=== PATIENT | male | born 1950 | race Caucasian/White ===

== ENCOUNTER → 2017-02-03 | Day surgery (SDC) | payer BC ==
[~2017-02-03] VITALS: Ht 180.3 cm; Wt 103.0 kg
[~2017-02-03] MED LIST: CIPRO500 MG PO; CPAP INH; LOPRESSOR25 MG PO; MULTIVITAMINS1 EAC2 PO; OMEPRAZOLE40 MG PO; PAXIL20 MG PO; TAMBOCOR100 MG PO; XARELTO20 MG PO
== END | disposition disaster alternative care site (69) ==
LOC: GPOC 01-29 10:00 → GEND 08:56
PROC: 0DBN8ZZ Excision of Sigmoid Colon, Via Natural or Artificial Opening Endoscopic (ICD-10-PCS; principal; 2017-02-03)
PROC: 06BY0ZC Excision of Hemorrhoidal Plexus, Open Approach (ICD-10-PCS; 2017-02-03)
DX: Z12.11 Encounter for screening for malignant neoplasm of colon (principal); K63.5 Polyp of colon; K64.1 Second degree hemorrhoids; K62.5 Hemorrhage of anus and rectum; Z79.899 Other long term (current) drug therapy; Z98.890 Other specified postprocedural states
CPT/HCPCS: J2001; J7030